=== PATIENT | female | born 1975 | race American Indian/Alaskan Native ===

== ENCOUNTER 2016-08-13 08:07 | Day surgery (SDC) | payer OTHER ==
--- NOTE | 2016-08-12 11:19 | Anesthesia Consultation ---
Anesthesia Consult and Med Hx Date of service: 08/12/16 - Airway Anesthetic Teeth Evaluation: Good ROM Head & Neck: Adequate Mental/Hyoid Distance: Adequate Mallampati Class: Class II Intubation Access Assessment: Probably Good - Pre-Operative Health Status ASA Pre-Surgery Classification: ASA3 Proposed Anesthetic Plan: General - Pulmonary Hx Smoking: No Hx Sleep Apnea: No (high risk) - Cardiovascular System Hx Hypertension: Yes (started meds 03/2016 but now takes only PRN.) Hx Heart Attack/AMI: No - Central Nervous System Hx Seizures: No CVA: No Hx Back Pain: Yes (associated with heavy bleeding) Hx Psychiatric Problems: No - Gastrointestinal Hx Gastroesophageal Reflux Disease: Yes (OTC meds) - Endocrine Hx Renal Disease: No Hx Liver Disease: No Hx Non-Insulin Dependent Diabetes: No - Hematic Hx Anemia: Yes Hx Sickle Cell Disease: No - Other Systems Hx Alcohol Use: Yes (occas) Hx Cancer: No Hx Obesity: Yes - Additional Comments Anesthesia Medical History Comments: NAC
[2016-08-12 11:22] LABS: White Blood Count 9.6 K/mm3 (4.5-11.0)
[2016-08-12 11:26] LABS: Basophils % (Auto) 0.2 % (0.0-1.8); Eosinophils % (Auto) 1.8 % (0.0-4.3); Hematocrit 30.2 % (30.3-42.9); Hemoglobin 9.1 gm/dl (10.1-14.3); Mean Corpuscular HGB Conc 30 % (30-34); Platelet Count 459 K/mm3 (140-440); Red Cell Distribution Width 19.5 % (13.2-15.2)
[2016-08-12 11:28] LABS: Mean Corpuscular Hemoglobin 20 pg (28-32); Mean Corpuscular Volume 67 fl (79-97)
--- NOTE | 2016-08-12 17:54 | Short Stay Summary ---
Short Stay Documentation Date of service: 08/13/16 Narrative H&P: 40y/o with uterine fibroids. The patient is s/p a UFE that was complicated by prolapse of a myoma into her cervical canal. She denies any significant pain. Ultrasound demonstrated fluid in the endometrium along with submucosal myoma. Patient has been reassessed/reevaluated/re-examined. H&P has been reviewed. No interval changes. - History Principal diagnosis: uterine fibroids H&P: obtained from office Past Medical History: anemia, other (fibroids) Past Surgical History: , Other (tubal ligation; UFE) Social history: - Allergies and Medications Current Medications: Allergies codeine Adverse Reaction (Verified 08/11/16 16:56) Nausea and vomiting Home Medications Medication Instructions Recorded Confirmed Last Taken Type Lisinopril [Lisinopril] 10 mg PO PRN PRN 08/11/16 08/11/16 Unknown History Active Medications Famotidine (Pepcid) 20 mg PO PREOP NR Stop: 08/13/16 23:59 Lactated Ringer's (Lactated Ringers) 1,000 mls @ 100 mls/hr IV DIRECT AC Stop: 08/13/16 23:59 Midazolam HCl (Versed) 2 mg IV PREOP NR Stop: 08/13/16 23:59 Scopolamine (Transderm-Scop) 1 each TD PREOP NR Stop: 08/13/16 23:59 - Physical exam General appearance: no acute distress Integumentary: no rash HEENT: Atraumatic Lungs: Clear to auscultation Breasts: deferred Heart: Regular rate Gastrointestinal: normal Female Genitourinary: deferred Rectal Exam: deferred - Brief post op/procedure progress note Date of procedure: 08/13/16 Pre-op diagnosis: degenerated leiomyomas Post-op diagnosis: same Procedure: Hysteroscopy Dilatation and curettage Extraction of leiomyomas with myosure Anesthesia: PHILLIP Surgeon: JACKLYN SANDOVAL Estimated blood loss: 50-100ml Pathology: list (endometrial curettings; leiomyomas) Specimen disposition: to lab Condition: stable - Hospital course Hospital course: The patient was admitted the day of surgery and underwent a hysteroscopy and myomectomy. Please see operative note for details of surgery. Postoperative course was unremarkable - Disposition Condition at discharge: Good Disposition: DISCHARGED TO HOME OR SELFCARE Short Stay Discharge Plan Activity: other (pelvic rest for 2 weeks) Diet: regular Additional Instructions: REMOVE SCOPOLAMINE PATCH FROM BEHIND LEFT EAR. Follow-up in [address] Jones Prescriptions: Cephalexin [Keflex] 500 mg PO Q12HR #14 cap Hydromorphone HCl [Dilaudid] 4 mg PO Q8HR PRN #30 tablet PRN Reason: Pain Ibuprofen [Motrin] 800 mg PO Q8HR PRN #60 tablet PRN Reason: Pain
[~2016-08-13 08:07] MED LIST: ANCEF/STERILE WATER 2 GM/20 ML 2 GM/20 ML SYRINGE IV NR; LACTATED RINGERS 1,000 ML IV SCH; TRANSDERM-SCOP TD NR; VERSED IV NR
[2016-08-13] MEDS ORDERED: SUBLIMAZE IV PRN (09:11)
--- NOTE | 2016-08-13 09:12 | Anesthesia Day of Surgery ---
Anesthesia Day of Surgery - Day of Surgery Patient Examined: Yes Patient H&P Reviewed: Yes Patient is NPO: Yes
[2016-08-13] MEDS ORDERED: NACL BACTERIOSTATIC INFILTRATI ONE (09:26)
[2016-08-13] MEDS ORDERED: PEPCID IV NR (10:00)
[2016-08-13] MEDS ORDERED: SILVER NITRATE TP ONE (10:15)
[2016-08-13] MEDS ORDERED: DIPRIVAN 10 MG/ML IV ONE ×2 (10:17→10:54)
[2016-08-13] MEDS ORDERED: XYLOCAINE MPF 2% ONE ×2 (10:17→11:02)
[2016-08-13] MEDS ORDERED: SUBLIMAZE ONE (10:17)
[2016-08-13] MEDS ORDERED: DECADRON ONE (10:28)
[2016-08-13] MEDS ORDERED: ZOFRAN ONE ×2 (10:28→11:53)
[2016-08-13] MEDS ORDERED: TORADOL ONE (10:28)
[2016-08-13] MEDS ORDERED: NACL 0.9% IR ONE ×2 (10:39→11:09)
[2016-08-13] MEDS ORDERED: DILAUDID ONE (10:54)
[2016-08-13] MEDS ORDERED: ZEMURON IV ONE (11:02)
--- NOTE | 2016-08-13 11:22 | Operative Report ---
Operative Report Operative Report: Date of procedure: 08/13/2016 Pre-operative diagnosis: Degenerating leiomyomas Post-operative diagnosis: Same as above Procedure name(s): Hysteroscopy; dilatation and curettage; extraction of leiomyomas with Myosure Surgeon: Hina Bello M.D. General Purchasing Agent: none Estimated blood loss: 50 mL Anesthesia: Gen. endotracheal anesthesia Findings Degenerating leiomyoma prolapsing through the endocervical canal measuring approximately 3-4cm; an additional 2 cm myoma was removed from the lower uterine segment of the uterus; a submucosal myoma was identified in the cavity of the uterus which was extracted with a myosure Indication: 40-year-old with findings of degenerating fibroids status post uterine fibroid embolization. The patient had evidence of a prolapsing myoma through her endocervical canal with evidence of purulent vaginal discharge. Procedure The patient was taken to the operating room and given general endotracheal anesthesia without complication. She is prepped and draped in a normal sterile fashion. A bivalve speculum was placed in the patient's vagina. A ring forcep was placed on the anterior lip of the cervix. There was evidence of a purulent vaginal discharge and a prolapsing leiomyomas coming from the endocervical canal. The myoma was able to be grasped and removed with the ring forcep. The hysteroscope was then inserted with findings of an additional leiomyoma in the lower uterine segment. This leiomyoma was also extracted. Once the hysteroscope was inserted to the fundus of the uterus there was an additional submucosal myoma which was extracted with the Myosure device. A sharp curettage was performed of the endometrial surface. The vaginal instruments were then removed atraumatically. The patient was then successfully extubated and taken to the recovery room in stable condition. All sponge laps and needle counts were correct 2.
[2016-08-13] MEDS ORDERED: ZOFRAN IV ONE (12:00)
[2016-08-13] MEDS ORDERED: PEPCID PO NR (12:00)
--- NOTE | 2016-08-13 12:15 | Post Anesthesia Evaluation ---
- Post Anesthesia Evaluation Patient Participated: Yes Airway Patent: Yes Stable Respiratory Function: Yes Temp > 96.8F: Yes Pain Manageable: Yes Adequeate Hydration: Yes Anesthesia Complications: No Block Receding Appropriately: Not Applicable
[2016-08-13] MEDS ORDERED: REGLAN IV PRN (12:21)
[2016-08-13 12:32] VITALS: BP 127/82
--- NOTE | 2016-08-13 16:02 | Admit Criteria Form ---
Admission Criteria Documentation: AMBULATORY SURGERY EXCEPTION CRITERIA Ambulatory Surgery Exception Criteria ( Place 'X' for any and all applicable criteria): Surgery or procedure performed on ambulatory basis may require inpatient stay for[A] ANY ONE of the following(1)(2)(3)(4)(5)(6)(7)(8)(9): [X] I. A preoperative situation, condition, or finding that warrants inpatient stay as indicated by ANY ONE of the following: [] a) Inpatient care needed because of severity of a disease or condition rather than the surgery (eg, severe cardiac or respiratory disease, severe infection) (15) (16 ) (17) (18) [] b) Emergent procedure (eg, angioplasty for acute ischemia)(19) [] c) Complex surgical approach or situation as indicated by ANY ONE of the following(3): [] i) Open approach needed instead of usual endoscopic, transcatheter, or other less invasive procedure [] ii) Difficult approach because of previous operation [] iii) Airway monitoring required after open neck procedures(20)(21) [] iv) Large mass requiring unusually extensive dissection [] v) Additional complicating feature requiring inpatient care (eg, drain management)(22(23): [X] d) Major surgery in a pt with high anesthetic risk as indicated by ANY ONE of the following (2)(3)(5)(7)(8): [X] i) ASA risk class III or higher (severe systemic disease impairing function) [D] [] ii) Advanced age (eg, older than 85 years)(14)(24) [] iii) Symptomatic heart failure(25) [] iv) Symptomatic asthma or COPD(8)(21) [] v) Morbid obesity with hemodynamic or respiratory problems(20)( 21)(26)(27) [] vi) Obstructive sleep apnea(20)(21) [] vii) Former premature infants who are younger than 60 weeks [] viii) High risk for severe postoperative abnormalities (eg, severe postoperative hypocalcemia after parathyroidectomy for severe hyperparathyroidism)(27)( 28) [] ix) Unstable angina(25) [] e) Drug-related risk requiring inpatient stay as indicated by ANY ONE of the following(5)(10)(14)(32)(33) [] i) Procedure requires discontinuing drugs or other therapy (eg , antiarrhythmic medication, antiseizure medication), which necessitates inpatient observation or treatment.(18)(31) [] ii) Major surgery and high risk drug use as indicated by ANY ONE of the following: [] 1) Active abuse of cocaine or similar drug [] 2) Monoamine oxidase inhibitor use [] 3) Other drug identified as posing risk [] f) Inadequate outpatient care situation as indicated by ANY ONE of the following(5)(10)(14)(32)(33) [] i) Patient lives remote from medical facility and procedure has urgent complication potential, and temporary nearby residence cannot be arranged [] ii) Patient will have postprocedure incapacitation and inadequate assistance at home, or alternative level of care cannot be arranged. [] iii) Patient will have long general anesthesia or procedure side effect resolution time, and competent person to stay with patient on first postoperative night at home or alternative level of care cannot be arranged. []iv) Other inadequate outpatient situation that cannot be handled by other means [] II. A perioperative event, condition, or finding that warrants inpatient stay as indicated by ANY ONE of the following (1)(2)(3): [] a) Inadequate physiologic recovery: cardiovascular, respiratory, or hemodynamic status not normal or near preoperative baseline(18) [] b) Hemodynamic instability [] c) Patient not alert with near normal or baseline mental status [] d) Temperature not normal or as expected and not appropriate for outpatient treatment of condition [] e) Ambulatory or appropriate activity level status not yet achieved post procedure [E](34)(35)(36) [] f) Operative site not appropriate (eg, unexpected or excessive drainage or bleeding) [] g) Postoperative effects not resolved or adequately managed (eg, significant pain or vomiting not appropriate for outpatient or next level of care)(10)(12) [] h) Complicating features requiring inpatient care as indicated by ANY ONE of the following(37): [] i) Severe complications of procedure (eg, bowel injury, airway compromise, vascular injury,severe hemorrhage) [] ii) Extensive (eg, dissection far beyond usual scope of procedure ) or prolonged (eg, 120 minutes beyond usual) surgery needed requiring inpatient postoperative care [] iii) Conversion to an open or complex procedure that requires inpatient care (eg, open vs laparoscopic cholecystectomy, abdominal vs vaginal hysterectomy)(38) [] iv) Comorbid condition or test result identified during or post procedure that requires inpatient care (7) [] v) Malignant hyperthermia(30) [] vi) Other complicating feature requiring inpatient care(22)(23) Inpatient stay may be needed until ALL of the following are present (1)(2)(3)(4) (5)(6)(10)(14)(33)(40): []a) Physiologic recovery: cardiovascular, respiratory, and hemodynamic status normal or near preoperative baseline []b) Hemodynamic stability []c) Patient alert, with near normal or baseline mental status []d) Temperature appropriate: patient afebrile or temperature appropriate for outpt treatment of condition []e) Activity level appropriate: ambulatory or appropriate activity level post procedure []f) Operative site appropriate as indicated by ALL of the following: []i) Site dry or with expected drainage []ii) Any blood noted is as expected for procedure. []g) Postoperative effects resolved or managed as indicated by ALL of the following: []i) Pain management appropriate for outpatient (or next level of) care(10) []ii) Minimal nausea and vomiting: if present, successfully treated with oral medication(12) []iii) Headache, dizziness, or drowsiness (if present) are mild. []h) Voiding status acceptable as indicated by ANY ONE of the following: []i) Voiding spontaneously []ii) No voiding but instructions given for follow-up in 6 to 8 hours []iii) Urinary catheter in place, and instructions given for follow-up []i) Complicating features requiring inpatient care manageable at a lower level of care(37) []j) Comorbid conditions manageable at a lower level of care(37) The original [employer] content created by [employer] has been revised. The portions of the content which have been revised are identified through the use of italic text or in bold, and [facility] [employer] has neither reviewed nor approved the modified material. All other unmodified content is copyright [employer]. Please see references footnoted in the original [employer] edition 2016 Admission Criteria Met: Yes
== END 2016-08-13 13:25 | disposition home or self-care (01) ==
LOC: OR 08:07
PROVIDERS: ATTEND Obstetrics & Gynecology
DX: D25.9 Leiomyoma of uterus, unspecified (principal); I10 Essential (primary) hypertension; D64.9 Anemia, unspecified; Z72.89 Other problems related to lifestyle; E66.01 Morbid (severe) obesity due to excess calories; Z68.42 Body mass index [BMI] 45.0-49.9, adult; Z98.51 Tubal ligation status; Z79.899 Other long term (current) drug therapy
CPT/HCPCS: 36415; 58561; 84703; 85025; 88305; A4217; C1782; J0690; J1100; J1885; J2250; J2405; J2704; J2765; J3010; J7120; J1170

== ENCOUNTER 2021-04-03 06:07 | Day surgery (SDC) | payer OTHER ==
[2021-04-02 11:28] LABS: Mean Corpuscular HGB Conc 30 % (30-34); Mean Corpuscular Volume 74 fl (79-97); Platelet Count 315 K/mm3 (140-440)
[2021-04-02 11:29] LABS: Hemoglobin 10.8 gm/dl (10.1-14.3)
[2021-04-02 11:45] LABS: Blood Urea Nitrogen 11 mg/dL (7-17); Hemolysis Index 7
[2021-04-02 12:06] LABS: BUN/Creatinine Ratio 16
--- NOTE | 2021-04-02 17:35 | Anesthesia Consultation ---
Anesthesia Consult and Med Hx Date of service: 04/03/21 - Airway Anesthetic Teeth Evaluation: Good ROM Head & Neck: Adequate Mental/Hyoid Distance: Adequate Mallampati Class: Class IV Intubation Access Assessment: Possibly Difficult - Pre-Operative Health Status ASA Pre-Surgery Classification: ASA3 Proposed Anesthetic Plan: General Nerve Block: TAP - Pre-Anesthesia Comment Pre-Anesthesia Comments: PONV - Pulmonary Hx Smoking: No Hx Sleep Apnea: No (PEPPER PRE SCREEN HIGH RISK) - Cardiovascular System Hx Hypertension: Yes (2016) Hx Heart Attack/AMI: No - Central Nervous System Hx Seizures: No CVA: No Hx Back Pain: Yes (associated with heavy bleeding) Hx Psychiatric Problems: No - Gastrointestinal Hx Gastroesophageal Reflux Disease: Yes (OTC meds) - Endocrine Hx Renal Disease: No Hx Liver Disease: No Hx Non-Insulin Dependent Diabetes: No - Hematic Hx Anemia: Yes Hx Sickle Cell Disease: No - Other Systems Hx Alcohol Use: Yes (occas) Hx Cancer: No Hx Obesity: Yes - Additional Comments Anesthesia Medical History Comments: Was here in 2017
--- NOTE | 2021-04-02 18:12 | Short Stay Summary ---
Short Stay Documentation Date of service: 04/03/21 Narrative H&P: 45-year-old who presents with a history of dysfunctional uterine bleeding and uterine fibroids. The patient has failed previous treatment options to include a uterine fibroid embolization and a hysteroscopic resection of a leiomyoma. The patient has continued to have heavy vaginal bleeding with the passage of clots. She is elected to undergo definitive surgical management. Patient has been reassessed/reevaluated/re-examined. H&P has been reviewed. No interval changes. - History Principal diagnosis: Symptomatic uterine fibroids Past Medical History: hypertension, other (Iron deficiency anemia) Past Surgical History: , Other (Uterine fibroid embolization; tubal ligation; hysteroscopy; dilatation and curettage) Social history: - Allergies and Medications Current Medications: Allergies codeine Adverse Reaction (Verified 08/11/16 16:56) Nausea and vomiting Home Medications Medication Instructions Recorded Confirmed Last Taken Type lisinopriL [Lisinopril] 10 mg PO DAILY 08/11/16 04/01/21 08/12/16 History hydroCHLOROthiazide [HCTZ] 25 mg PO QDAY 04/01/21 04/01/21 Unknown History Active Medications Acetaminophen (Acetaminophen 500 Mg Tab) 1,000 mg PO ONCE ONE Stop: 04/03/21 06:01 Celecoxib (Celecoxib 200 Mg Cap) 400 mg PO PREOP NR Fentanyl (Fentanyl 100 Mcg/2 Ml Inj) 100 mcg IV ONCE ONE Stop: 04/03/21 06:01 Gabapentin (Gabapentin 300 Mg Cap) 600 mg PO PREOP NR Lactated Ringer's (Lactated Ringers) 1,000 mls @ 125 mls/hr IV DIRECT AC Magnesium Oxide (Magnesium Oxide 400 Mg Tab) 400 mg PO ONCE ONE Stop: 04/03/21 06:01 Methocarbamol (Methocarbamol 750 Mg Tab) 1,500 mg PO ONCE ONE Stop: 04/03/21 06:01 Midazolam HCl (Midazolam 2 Mg/2 Ml Inj) 2 mg IV PREOP NR Stop: 04/03/21 23:59 Scopolamine (Scopolamine Transdermal Patch 72 Hr) 1 each TD PREOP NR - Physical exam General appearance: no acute distress Integumentary: no rash HEENT: Atraumatic Lungs: Clear to auscultation Breasts: deferred Heart: Regular rate Gastrointestinal: normal Female Genitourinary: deferred Rectal Exam: deferred - Brief post op/procedure progress note Date of procedure: 04/03/21 Pre-op diagnosis: Symptomatic uterine fibroid Post-op diagnosis: same Procedure: Robotic hysterectomy and bilateral salpingectomy Anesthesia: CALLIEA Surgeon: JACKLYN SANDOVAL Estimated blood loss: other (100 mL) Pathology: list (Uterus, cervix, bilateral tubes, leiomyomas) Specimen disposition: to lab Condition: stable - Hospital course Hospital course: The patient was admitted the day of surgery and underwent a robotic hysterectomy and bilateral salpingectomy. Please see operative note for details of surgery. Her postoperative course was uneventful. - Disposition Condition at discharge: Good Disposition: 01 HOME / SELF CARE / HOMELESS Short Stay Discharge Plan Activity: other (Pelvic rest for 6 weeks) Diet: regular Additional Instructions: Schedule follow-up with Dr. Sandoval in 4 weeks Patient should have pelvic rest for 6 weeks Patient may shower but no tub baths for [address] in 2 weeks
[~2021-04-03 06:07] MED LIST changes: +ACETAMINOPHEN 500 MG TAB PO NR; -ANCEF/STERILE WATER 2 GM/20 ML 2 GM/20 ML SYRINGE IV NR; +CELECOXIB 200 MG CAP PO NR; +GABAPENTIN 300 MG CAP PO NR; +MAGNESIUM OXIDE 400 MG TAB PO NR; +MIDAZOLAM 2 MG/2 ML INJ IV NR; +SCOPOLAMINE TRANSDERMAL PATCH 72 HR TD NR; -TRANSDERM-SCOP TD NR; -VERSED IV NR; +fentaNYL 100 MCG/2 ML INJ IV ONE
[2021-04-03] MEDS ORDERED: BACTERIOSTATIC SODIUM CHLORIDE 0.9% 30 ML VIAL INFILTRATI ONE (06:23)
[2021-04-03] MEDS ORDERED: NEOMY 40 MG/POLYMYXIN B 200,000 UNITS/ML (GU) AMPULE IR ONE ×2 (07:17→09:09)
[2021-04-03] MEDS ORDERED: fentaNYL 100 MCG/2 ML INJ ONE (07:17)
[2021-04-03] MEDS ORDERED: propofoL 200 MG/20 ML VIAL IV ONE (07:17)
[2021-04-03] MEDS ORDERED: ROCURONIUM 50 MG/5 ML INJ IV ONE ×2 (07:17→09:54)
[2021-04-03] MEDS ORDERED: LIDOCAINE MPF (2%) 20 MG/1 ML VIAL 5 ML ONE (07:17)
[2021-04-03] MEDS ORDERED: BUPIVACAINE/PF (0.25%) 2.5 MG/ML 30 ML VIAL INFILTRATI ONE (07:24)
[2021-04-03] MEDS ORDERED: dexAMETHasone 4 MG/ML VIAL ONE (07:25)
[2021-04-03] MEDS ORDERED: HYDROmorphone 1 MG/1 ML INJ IV PRN ×2 (08:50)
[2021-04-03] MEDS ORDERED: ONDANSETRON 4 MG/2 ML INJ IV PRN (09:00)
[2021-04-03] MEDS ORDERED: SODIUM CHLORIDE 0.9% IRRIG SOLN 2000 ML IR ONE (09:09)
[2021-04-03] MEDS ORDERED: SODIUM CHLORIDE 0.9% IRR 1,500 ML BOTTLE IR ONE (09:09)
[2021-04-03] MEDS ORDERED: ONDANSETRON 4 MG/2 ML INJ ONE (09:13)
[2021-04-03] MEDS ORDERED: dexAMETHasone 20 MG/5 ML VIAL ONE (09:13)
[2021-04-03] MEDS ORDERED: PHENYLEPHRINE/NS 1,000 MCG/10 ML SYRINGE (OR USE) IV ONE (09:29)
[2021-04-03] MEDS ORDERED: LACTATED RINGERS 1,000 ML ONE (10:11)
[2021-04-03] MEDS ORDERED: GLYCOPYRROLATE 0.4 MG/2 ML INJ ONE (11:17)
[2021-04-03] MEDS ORDERED: NEOSTIGMINE 10MG/10 ML INJ MDV ONE (11:17)
--- NOTE | 2021-04-03 11:31 | Operative Report ---
Operative Report Operative Report: Date of surgery: April 03, 2021 Preoperative diagnoses: Symptomatic uterine fibroid; menorrhagia; morbid obesity Postoperative diagnoses: Same as above Procedure: Robotic hysterectomy; bilateral salpingectomy Surgeon: Hina Bello M.D. Feather Baler:Tor Boyle Anesthesia: Gen. endotracheal anesthesia Estimated blood loss: 100 mL Pathology: Uterus, cervix, bilateral tubes, leiomyomas Indication: 45-year-old -1-1-2 with a history of symptomatic uterine fibroids. The patient had failed other treatment modalities and continued to have heavy vaginal bleeding. She elected to undergo definitive surgical management. Procedure: The patient was taken to the operating room and given general endotracheal anesthesia without complication after a time out was performed confirming the surgery and identity of the patient. She was prepped and draped in a normal sterile fashion. A bivalve speculum was placed in the patient's vagina and a single-tooth tenaculum placed on the anterior lip of the cervix. The uterus was sounded with the uterine sound. A stay suture with 0-vicryl was placed at 12 o'clock on the anterior cervix. A [employer] uterine manipulator was placed in the bivalve speculum was then removed. A warm laparotomy sponge was placed in the vagina. Attention was then turned to the patient's abdomen where a 12millimeter supra umbilical skin incision was then made. A Veress needle was placed and peritoneal entry was verified water-filled syringe. Insufflation of the peritoneal cavity was performed with CO2 gas. The 12 mm trocar was then placed under direct visualization. An additional 8 mm robotic trocar was placed on the patient's left and right lateral side just opposite of the supraumbilical trocar. An additional 5 mm right lateral trocar was then placed as the accessory port. The supraumbilical 12 mm trocar site was closed with the Anatoly Vidales device and 0-vicryl suture. The patient was then placed in steep Trendelenburg. The [employer] robot was then engaged. A Vanessa forcep was placed in arm 2 and a vessel sealer was placed in arm 1. General survey of the abdomen and pelvis revealed an enlarged fibroid uterus with evidence of a significant posterior leiomyoma. the surgeon then transferred to the surgical console. The mesosalpinx was then isolated on the right. The vessel sealer was used to coagulate the mesosalpinx which was then transected. The tube was transected from the ovary. The tubo-ovarian ligament was then coagulated and transected. The round ligament was then coagulated and transected also. The vesicouterine peritoneum was then entered from the patient's right side. The uterine vessels were then coagulated with the vessel sealer. The vessels were then transected . Attention was then turned to the patient's left side where the tubo-ovarian ligament and mesosalpinx were again isolated coagulated and transected. The vesical peritoneum was then entered from the left and joined in the midline. Peritoneum was reflected off of the lower uterine segment. Uterine vessels were then coagulated and then transected. The V care ring was visualized anteriorly once the anterior colpotomy was made. As noted previously there was evidence of a large posterior leiomyoma that was obstructing the cer vix. A posterior colpotomy could not be performed secondary to the large leiomyoma. A supracervical hysterectomy had to be performed. The posterior leiomyoma was resected from the cervix. The cervix was then removed through the vagina. The posterior leiomyoma was then excised from the peritoneal tissue. The uterus had to be bivalved in order to facilitate delivery through the vagina. The remaining tissue was removed through the vagina. The incision was continued circumferentially until anterior colpotomy was made. The uterus was then removed along with the tubes bilaterally through the vagina and a warm laparotomy sponge was placed and maintain the pneumoperitoneum. The vaginal cuff was then closed in a running fashion with V lock suture. Irrigation of the pelvis was performed. Surgicel was applied to the incision. The [employer] robot was undocked. The trocars were removed and the insuffliation was released. The skin was then reapproximated with 4-0 Monocryl. The tissue was sent to pathology which included the cervix, bilateral tubes and uterus. The patient was then successfully extubated. She was then taken to the recovery room in stable condition. All sponge laps and needle counts were correct x2.
[2021-04-03 13:26] VITALS: BP 133/75
--- NOTE | 2021-04-03 17:35 | Anesthesia Day of Surgery ---
Anesthesia Day of Surgery - Day of Surgery Patient Examined: Yes Patient H&P Reviewed: Yes Patient is NPO: Yes
--- NOTE | 2021-04-03 17:36 | Post Anesthesia Evaluation ---
- Post Anesthesia Evaluation Patient Participated: Yes Airway Patent: Yes Stable Respiratory Function: Yes Nausea/Vomiting: No Temp > 96.8F: Yes Pain Manageable: Yes Adequeate Hydration: Yes Anesthesia Complications: No Block Receding Appropriately: Yes Patient on Ventilator: No
== END 2021-04-03 14:20 | disposition home or self-care (01) ==
LOC: OR 06:07
PROVIDERS: ATTEND Obstetrics & Gynecology
DX: D25.9 Leiomyoma of uterus, unspecified (principal); N92.0 Excessive and frequent menstruation with regular cycle; N80.0 Endometriosis of uterus; N83.8 Other noninflammatory disorders of ovary, fallopian tube and broad ligament; Z20.822 Contact with and (suspected) exposure to COVID-19; I10 Essential (primary) hypertension; K21.9 Gastro-esophageal reflux disease without esophagitis; E66.01 Morbid (severe) obesity due to excess calories; Z88.6 Allergy status to analgesic agent; Z91.013 Allergy to seafood; Z79.899 Other long term (current) drug therapy; Z98.890 Other specified postprocedural states
CPT/HCPCS: 36415; 58544; 64488; 80048; 84703; 85027; 86850; 86900; 86901; 88302; 88305; 88307; J0690; J1100; J1815; J2250; J2370; J2405; J2704; J2710; J3010; J3490; J7120; S2900; U0003; 64450